=== PATIENT | male | born 1945 | race Caucasian/White ===

== ENCOUNTER → 2018-10-10 13:05 | Outpatient (CLI) | payer MEDICARE, OTHER, SELFPAY ==
--- NOTE | 2018-10-10 | DI.CT.S_ITS ---
PROCEDURE: CT LE LT W CON INDICATIONS: Pain in left toe(s) TECHNIQUE: After the administration of intravenous contrast, 3 mm axial sections acquired of the left foot, with coronal and sagittal reformats. COMPARISON: None. FINDINGS: Image quality: Excellent. Bones: No fracture or focal osseous destruction. Prominent plantar and posterior calcaneal spurring. 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 At the dorsal aspect of the second toe at the level of the distal phalanx and nail bed, there is a nonspecific 3 mm superficial irregular focus involving the skin surface and/or nail bed. At the fourth toe no specific osseous or soft tissue abnormality is seen. No definite lytic lesion is seen although recommend correlation with dedicated forefoot radiographs. No discrete enhancing mass. There are chronic appearing ossicle seen adjacent to the tip of the medial malleolus. Diffuse muscle atrophy. IMPRESSION: No specific focal abnormality at the tip of the fourth toe. Recommend correlation with dedicated forefoot radiographs to assess for subtle lytic changes. 3 mm superficial irregularity involving the dorsal aspect of the distal second toe/nail bed. Recommend correlation with clinical exam findings. Prominent plantar and posterior calcaneal spurring. Dictated by: Josef Leonardo M.D. on 10/10/2018 at 13:52 Approved by: Josef Leonardo M.D. on 10/10/2018 at 14:25
== END ==
PROVIDERS: PCP Family Medicine; Visit Provider Podiatrist
DX: M79.675 Pain in left toe(s) (principal); M77.32 Calcaneal spur, left foot
CPT/HCPCS: 73701